=== PATIENT | female | born 1960 | race Caucasian/White ===

== ENCOUNTER → 2018-09-08 07:01 | Outpatient (CLI) | payer OTHER, SELFPAY ==
--- NOTE | 2018-09-08 07:05 | BI_ITS ---
MAMMOGRAPHY - BILATERAL SCREENING REASON FOR EXAM: Female, 58 years old. Routine annual screening examination. PERTINENT HISTORY: Non-contributory. TECHNIQUE: Digital bilateral breast krys (3D mammographic acquisition) in the CC and MLO projections. 2-D mediolateral oblique (MLO) and craniocaudad (CC) views of both breasts were obtained. CAD: Full Field Digital Mammography with Computer Added Detection was performed. COMPARISON: Comparison is made with prior study dated October 08, 2016 and September 12, 2015. FINDINGS: Breast Composition: The breasts are heterogeneously dense, which may obscure small masses. There are no dominant masses or suspicious calcifications. No other significant abnormalities are identified. There has been no significant change since the prior study. BI/SCREENING MAMM (CAD), BILAT IMPRESSION: Stable bilateral screening mammogram. Yearly follow-up mammogram recommended. (A) ASSESSMENT CATEGORY: BIRADS Category 1: Negative. A letter regarding these results will be sent to the patient by the facility within 30 days. Approximately 10% of breast cancers are not detected by mammography. A normal mammogram should not delay biopsy of a clinically suspicious abnormality. [id number] Electronically Signed: Yohan Chaney MD at 8:10 EST Tel [phone], Service support ,
== END ==
PROVIDERS: Family Provider Family Medicine; PCP Family Medicine
DX: Z12.31 Encounter for screening mammogram for malignant neoplasm of breast (principal)
CPT/HCPCS: 77063; 77067

== ENCOUNTER → 2020-08-23 17:30 | Outpatient (CLI) | payer OTHER, SELFPAY ==
--- NOTE | 2020-08-23 17:15 | BI_ITS ---
MAMMOGRAPHY - BILATERAL SCREENING REASON FOR EXAM: Female, 60 years old. Routine annual screening examination. PERTINENT HISTORY: Non-contributory. TECHNIQUE: Digital bilateral breast nestor (3D mammographic acquisition) in the CC and MLO projections. 2-D mediolateral oblique (MLO) and craniocaudad (CC) views of both breasts were obtained. CAD: Full Field Digital Mammography with Computer Added Detection was performed. COMPARISON: Comparison is made with prior study dated 09/08/2018 and 10/08/2016. FINDINGS: Breast Composition: The breasts are heterogeneously dense, which may obscure small masses. Asymmetrical density is seen in the inferior slightly medial retroareolar region of the left breast. Correlation with ultrasound is recommended. No other significant abnormalities are identified. BI/SCREEN MAMM (CAD) W/NESTOR BILAT IMPRESSION: Asymmetrical density in the inferior slightly medial retroareolar region of the left breast as described. Correlation with ultrasound is recommended. ASSESSMENT CATEGORY: BIRADS Category 0: Incomplete. Need additional imaging evaluation. A letter regarding these results will be sent to the patient by the facility within 30 days. Approximately 10% of breast cancers are not detected by mammography. A normal mammogram should not delay biopsy of a clinically suspicious abnormality. [id number] Electronically Signed: Yohan Chaney, at 9:29 EDT , Service support ,
== END ==
PROVIDERS: PCP Family Medicine
DX: Z12.31 Encounter for screening mammogram for malignant neoplasm of breast (principal)
CPT/HCPCS: 77063; 77067

== ENCOUNTER → 2020-08-29 15:02 | Outpatient (CLI) | payer OTHER, SELFPAY ==
--- NOTE | 2020-08-29 15:06 | US_ITS ---
STUDY: ULTRASOUND BREAST - LEFT REASON FOR EXAM: Female, 60 years old. Abnormal screening mammogram. TECHNIQUE: Axial and longitudinal images of the LEFT breast were performed with a high resolution ultrasound transducer. # OF IMAGES: 18 COMPARISON: Comparison is made with prior mammogram dated 08/23/2020. FINDINGS: LEFT Breast: There is evidence of dilated subareolar ducts. No other abnormality is seen. US/Breast Limited Unilateral IMPRESSION: Dilated subareolar ducts. ASSESSMENT CATEGORY: BIRADS Category 2: Benign. A letter regarding these results will be sent to the patient by the facility within 30 days. Electronically Signed: Yohan Chaney, at 15:53 EST , Service support ,
== END ==
LOC: OPUS 15:03
PROVIDERS: PCP Family Medicine
DX: R92.8 Other abnormal and inconclusive findings on diagnostic imaging of breast (principal)
CPT/HCPCS: 76642

== ENCOUNTER → 2021-09-13 14:10 | Outpatient (CLI) | payer OTHER, SELFPAY ==
--- NOTE | 2021-09-13 14:17 | BI_ITS ---
MAMMOGRAPHY - BILATERAL SCREENING REASON FOR EXAM: Female, 61 years old. Routine annual screening examination. PERTINENT HISTORY: Non-contributory. TECHNIQUE: Digital bilateral breast nestor (3D mammographic acquisition) in the CC and MLO projections. 2-D mediolateral oblique (MLO) and craniocaudad (CC) views of both breasts were obtained. CAD: Full Field Digital Mammography with Computer Added Detection was performed. COMPARISON: Comparison is made with prior examination of 08/23/2020 and 09/08/2018. FINDINGS: Breast Composition: The breasts are heterogeneously dense, which may obscure small masses. There are no dominant masses or suspicious calcifications. Stable asymmetry in the inferior slightly medial retroareolar region of the left breast. Prior ultrasound demonstrated this to be glandular tissue. No other significant abnormalities are identified. There has been no significant change since the prior study. BI/SCRN MAMM (CAD)W/NESTOR BILAT IMPRESSION: Stable bilateral screening mammogram. Yearly follow-up mammogram recommended. (A) ASSESSMENT CATEGORY: BIRADS Category 2: Benign. A letter regarding these results will be sent to the patient by the facility within 30 days. Approximately 10% of breast cancers are not detected by mammography. A normal mammogram should not delay biopsy of a clinically suspicious abnormality. [id number] Electronically Signed: Yohan Chaney MD at 15:11 EST , Service support ,
== END ==
PROVIDERS: PCP Family Medicine
DX: Z12.31 Encounter for screening mammogram for malignant neoplasm of breast (principal)
CPT/HCPCS: 77063; 77067

== ENCOUNTER → 2022-09-19 | Outpatient (CLI) | payer OTHER, SELFPAY ==
--- NOTE | 2022-09-19 13:42 | BI_ITS ---
MAMMOGRAPHY - BILATERAL SCREENING REASON FOR EXAM: Female, 62 years old. Routine annual screening examination. PERTINENT HISTORY: Non-contributory. TECHNIQUE: Digital bilateral breast nestor (3D mammographic acquisition) in the CC and MLO projections. 2-D mediolateral oblique (MLO) and craniocaudad (CC) views of both breasts were obtained. CAD: Full Field Digital Mammography with Computer Added Detection was performed. COMPARISON: Screening mammogram from 09/13/2021, 08/29/2020. Diagnostic left breast ultrasound from 08/29/2020. FINDINGS: Breast Composition: The breasts are heterogeneously dense, which may obscure small masses. There are no dominant masses or suspicious calcifications. Stable area of asymmetrical breast tissue in the left retroareolar breast previously characterized be benign glanular tissue on ultrasound. No other significant abnormalities are identified. There has been no significant change since the prior study. BI/SCRN MAMM (CAD)W/NESTOR BILAT IMPRESSION: Stable bilateral screening mammogram. Yearly follow-up mammogram recommended. (A) ASSESSMENT CATEGORY: BIRADS Category 2: Benign. A letter regarding these results will be sent to the patient by the facility within 30 days. Approximately 10% of breast cancers are not detected by mammography. A normal mammogram should not delay biopsy of a clinically suspicious abnormality. Electronically Signed: Otoniel Wylie, at 9:17 EST ,
== END | disposition home or self-care (01) ==
PROVIDERS: PCP Family Medicine; Referring Provider Family Medicine
DX: Z12.31 Encounter for screening mammogram for malignant neoplasm of breast (principal)
CPT/HCPCS: 77063; 77067

== ENCOUNTER → 2023-10-25 | Outpatient (CLI) | payer OTHER, SELFPAY ==
--- NOTE | 2023-10-25 08:09 | BI_ITS ---
MAMMOGRAPHY - BILATERAL SCREENING 3-D TOMOSYNTHESIS REASON FOR EXAM: Female, 63 years old. Routine annual screening mammogram. PERTINENT HISTORY: No significant family history. TECHNIQUE: 2-D mammograms and 3-D Tomosynthesis of the breast (s) were performed. CAD was performed. COMPARISON: September 19, 2022, September 13, 2021 FINDINGS: The breast composition is heterogeneously dense which may obscure small breast masses. Stable scattered benign calcifications and normal axillary lymph nodes. No dominant masses, suspicious microcalcifications, asymmetries, skin thickening or nipple retraction . BI/SCRN MAMM (CAD)W/NESTOR BILAT IMPRESSION: No interval change and no mammographic signs of malignancy. Routine yearly mammogram recommended. ASSESSMENT CATEGORY: BIRADS Category 2: Benign. A letter regarding these results will be sent to the patient by the facility within 30 days. FOLLOW UP RECOMMENDATION: Yearly follow up mammogram recommended. (A) Approximately 10% of breast cancers are not detected by mammography. A normal mammogram should not delay biopsy of a clinically suspicious abnormality. Electronically Signed: Facundo Paniagua MD at 12:34 EST ,
--- OUTSIDE RECORDS SUMMARY | 2023-10-25 08:47 | XMS RPT_ITS | CCD ---
Author Name Unknown Address [address] [place] [address] Organization [facility] Care Team Providers Care Statistician Applied Name Role Phone Justo Camacho Unavailable Unavailable Justo Camacho Unavailable Unavailable Justo Camacho Primary Care Provider JUSTO CAMACHO Primary Care Justo [place] MD Primary Care [facility] er Justo Camacho Unavailable Unavailable Unavailable Justo Camacho MD Primary Care [facility] er Justo Camacho Referring Justo [place] Attending Justo Madrid Primary Care Cielo Carrasquillo CNP Unavailable JUSTO CAMACHO Primary Care CIELO Carrasquillo Attending Unavailable Allergies Allergy Classification Reported Allergen(s) Allergy Type Date of Onset Reaction(s) Facility (3 sources) amoxicillin / clavulanate; Translations: [Augmentin] Drug Allergy [facility] Repository (1 source) azithromycin; Translations: [Zithromax Z-Trino] [facility] Bee/Wasp/Ant venom; Translations: [Bee Stings] Propensity to adverse reactions to drug (disorder) [facility] ([facility]) cefuroxime; Translations: [Ceftin] [facility] (17 sources) fentaNYL; Translations: [fentaNYL] Drug Allergy 5 Unknown [facility] Repository (1 source) moxifloxacin; Translations: [Avelox] Drug Allergy [facility] Repository (1 source) Food intolerance; Translations: [Food intolerance] Propensity to adverse reactions to food (disorder) [facility] Repository (14 sources) Amoxicillin / Clavulanate; Translations: [AMOXICILLIN-POT CLAVULANATE] Drug Allergy 9 [facility] (16 sources) Azithromycin; Translations: [AZITHROMYCIN] Drug Allergy 7 [facility] (14 sources) Cefuroxime; Translations: [CEFUROXIME AXETIL] Drug Allergy [facility] (14 sources) Lactose; Translations: [LACTOSE] Drug Allergy [facility] (16 sources) levoFLOXacin; Translations: [LEVOFLOXACIN] Drug Allergy 9 [facility] (16 sources) moxifloxacin; Translations: [MOXIFLOXACIN] Drug Allergy 7 [facility] (14 sources) wasp venom; Translations: [WASP VENOM] Propensity to adverse reactions to drug 0 [facility] (2 sources) Cefuroxime; Translations: [cefuroxime] Drug Allergy [facility] Work Phone: Medications Current Medications Medication Drug Class(es) Dates Sig (Normalized) Sig (Original) compounded hormone cream (18 sources) Start: 09-24-2023 compounded hormone cream Indications: testosterone 2%, apply 1/2 tsp every other day Testosterone 2%, apply 0.5 mL every other day, Reasons: testosterone 2%, apply 1/2 tsp every other day. 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] Episodic Other female genital disorders (3 sources) Atrophic vulva; Translations: [Atrophy of vulva] Episodic Other screening for suspected conditions (not mental disorders or infectious disease) (6 sources) Patient encounter status; Translations: [Encounter for screening mammogram for malignant neoplasm of breast] Episodic Residual codes; unclassified (9 sources) Postmenopausal state; Translations: [Hormone replacement therapy] Episodic Residual codes; unclassified (1 source) H/O: hysterectomy; Translations: [H/O: hysterectomy] Episodic Residual codes; unclassified (1 source) Memory impairment; Translations: [Memory change] Episodic Residual codes; unclassified (1 source) At risk of osteoporosis; Translations: [At high risk for osteoporosis] Episodic Residual codes; unclassified (2 sources) Reduced libido; Translations: [Decreased libido] Onset: 09-24-2023 09-24-2023 Episodic Residual codes; unclassified (1 source) Decreased libido; Translations: [Decreased libido] Onset: 09-24-2023 Episodic Unclassified (3 sources) Patient encounter status; Translations: [Encounter for gynecological examination without abnormal finding] Past or Other Problems Problem Classification Problem Date Documented Da te Episodic/Chronic Residual codes; unclassified (2 sources) Past history of procedure; Translations: [Other specified personal history presenting hazards to health] Onset: 09-13-2021 Episodic Results Test Name Value Interpretation Reference Range Facil it Vital Signs Date Time Vital Sign Value Performing Clinician Faci lity 09-24-2023 11:06-0500 Body height 155.6 cm Cielo FROST P Work Phone: [facility] 09-24-2023 11:06-0500 Body mass index (BMI) [Ratio] 34.86 kg/m2 Cielo Gurrola [employer] DEPUTY DIRECTOR Work Phone: [facility] 09-24-2023 11:06-0500 Body weight 84.37 kg Cielo FROST P Work Phone: [facility] 09-24-2023 11:06-0500 Diastolic blood pressure 84 mm[Hg] Cielo Gurrola [employer] DEPUTY DIRECTOR Work Phone: [facility] Encounters Encounter Date Encounter Type Care Provider Facility Start: 09-24-2023 End: 09-24-2023 Lavinia Gonzalez RN [facility] Gynecology Procedures Date Procedure Procedure Detail Performing Clinician Start: 09-19-2022 Mammography Cielo Gurrola CNP Work Phone: Start: 09-13-2021 Mammography Peggy henson JAYLIN Work Phone: Start: 08-23-2020 Mammography Joan olvera MA Cataract surgery Justo Taylor abbiechar Work Phone: Plan of Treatment Date Care Activity Detail Author Start: 09-30-2024 End: 09-30-2024 Patient encounter procedure 09/30/2024 11:50 AM EST Office Visit [facility] Physician [facility] Gynecology [address] [place] [address] Cielo Gurrola, JAYLIN [address] [place] [address] [facility] Physician [facility] Gynecology Start: 09-24-2024 History and physical examination, annual for health maintenance Wellness Visit [facility] Start: 09-20-2023 End: 09-20-2023 Patient encounter procedure 09/20/2023 Office Visit Gynecology Peggy Daniels CNP [address] [place] [address] [facility] Physician [facility] Gynecology Start: 09-19-2023 Screening for malignant neoplasm of breast Mammogram [facility] Start: 09-14-2023 History and physical examination, annual for health maintenance Wellness Visit [facility] Start: 06-28-2023 COVID-19 Vaccine () COVID-19 Vaccine () [facility] Start: 06-28-2023 Influenza vaccination Sequential Influenza Vaccine (#1) [facility] Start: 09-14-2022 End: 09-14-2022 Patient encounter procedure 09/14/2022 Office Visit Gynecology Peggy Daniles CNP [address] [place] [address] [facility] Physician [facility] Gynecology Start: 09-13-2022 Screening for malignant neoplasm of breast Mammogram [facility] Start: 09-11-2022 History and physical examination, annual for health maintenance Wellness Visit [facility] Start: 06-28-2022 Influenza vaccination Sequential Influenza Vaccine (#1) [facility] Start: 02-04-2022 COVID-19 Vaccine (3 - Booster for Moderna series) COVID-19 Vaccine (3 - Booster for Moderna series) [facility] Start: 10-01-2021 COVID-19 Vaccine (3 - Booster for Moderna series) COVID-19 Vaccine (3 - Booster for Moderna series) [facility] Start: 09-11-2021 End: 09-11-2021 Patient encounter procedure 09/11/2021 Office Visit Gynecology Peggy Daniels CNP [address] [place] [address] [facility] Gy[facility] Start: 08-23-2021 Screening for malignant neoplasm of breast Mammogram [facility] Start: 08-08-2021 History and physical examination, annual for health maintenance Wellness Visit [facility] Start: 06-28-2021 Influenza vaccination Sequential Influenza Vaccine (#1) [facility] Start: 10-03-2020 End: 10-03-2020 Telemedicine 10/03/2020 Telemedicine Gynecology Alexandra Green MD [address] [place] [address] [phone] [facility] Start: 08-04-2020 History and physical examination, annual for health maintenance Wellness Visit [facility] Start: 06-28-2020 Influenza vaccination given Sequential Influenza Vaccine (#1) [facility] Start: 01-14-2012 Administration of herpes zoster vaccine Zoster Vaccines (1 of 2) [facility] Start: 01-14-2012 Screening for malignant neoplasm of colon [facility] Start: 01-14-1980 Hepatitis C antibody, confirmatory test Hepatitis C Screening [facility] Start: 01-14-1980 Hepatitis C screening Hepatitis C Screening [facility] Start: 1978 COVID-19 Vaccine (1 of 2) COVID-19 Vaccine (1 of 2) [facility] Start: 1977 HIV screening HIV Screening [facility] Start: 1974 Adolescent depression screening assessment Depression Screening (PHQ9) [facility] Start: 1974 COVID-19 Vaccine (1) COVID-19 Vaccine (1) [facility] Start: 1974 Depression screening using PHQ-9 (Patient Health Questionnaire 9) score [facility] Start: 1960 Screening for malignant neoplasm of cervix Pap Smear [facility] Start: 1962 Screening for malignant neoplasm of colon [facility] Start: 1962 Screening mammography Mammogram [facility] Start: 1962 Tetanus vaccination Tetanus: Every 10yrs [facility] End: 11-11-2022 MG Breast - bilateral Screening Mammography Screening Bilateral Imaging Routine Visit for screening mammogram 1 Occurrences starting 09/11/2021 until 11/11/2022 [facility] Work Phone: Immunizations Immunization Date Immunization Notes Care Provider Karina alford 08-06-2021 Moderna COVID-19 Vaccine 100 MCG/0.5ML Intramuscular Suspension Justo Camacho Work Phone: [facility] Work Phone: Payers Date Payer Category Payer Unknown [id number] 2019 Unknown [id number] 2019 Unknown [id number] 2018 Private Health Insurance 1960 Unknown [id number] 1960 Unknown [id number] 1960 Unknown [id number] Social History Date Type Detail Facility Start: 08-08-2020 End: 09-24-2023 Tobacco smoking status NHIS Never smoker [facility] Start: 08-08-2020 End: 09-24-2023 Tobacco use and exposure Never used [facility] Start: 08-08-2020 End: 09-24-2023 Alcohol intake Ex-drinker (finding) [facility] Start: 1960 Sex Assigned At Not on file [facility] Start: 09-04-2022 End: 09-14-2022 Exposure to SARS-CoV-2 (event) Not sure [facility] Start: 09-11-2021 History SDOH Alcohol Comment Rarely; once a year. [facility] Start: 09-24-2023 Non-smoker Non-smoker [facility] Work Phone: Start: 09-24-2023 Tobacco use panel [facility] Start: 10-03-2020 Gender identity Identifies as female gender (finding) [facility] Start: 10-03-2020 Sexual orientation Heterosexual (finding) [facility] Clinical Notes 03-02-2012 to 09-24-2023 Telephone Encounter - Dallas Gonzalez RN - 09/24/2023 1:07 PM ESTTelephone Encounter - Dallas Gonzalez RN - 09/24/2023 1:07 PM Cielo Aragon CNP - 09/24/2023 11:27 AM EST Note Date & Type Note Facility 09-24-2023 Telephone encounter Note Called and spoke to pharmacist at [facility]. Verbal order with read back given for patient's testosterone cream. Office call back number provided for any further questions. Medication order placed and routed to provider for review/sign off. [facility] 09-24-2023 Miscellaneous Notes Called and spoke to pharmacist at [facility]. Verbal order with read back given for patient's testosterone cream. Office call back number provided for any further questions. Medication order placed and routed to provider for review/sign off. ----- Message from Cielo Gurrola CNP sent at 09/24/2023 11:30 AM EST ----- Please call refill of testosterone to pharmacy documented in this encounter [facility] 09-24-2023 Telephone encounter Note ----- Message from Cielo Gurrola CNP sent at 09/24/2023 11:30 AM EST ----- Please call refill of testosterone to pharmacy [facility] 09-24-2023 History of Presen t illness Narrative Annual Gynecologic Examination Subjective: Seema León is a 63 y.o. 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 [employer]S LABORATORY DIRECTOR with/without complaints. Feels well on HRT, having some brain fog. Recommend followup with PCP. No hot flashes. Has been using testosterone daily. Will check level for safety. The patient denies no breast pain or new or enlarging lumps on self exam, no side effects of hormonal medications, no discharge or pelvic pain, no hot flashes. ENERGY SYSTEMS LABORATORY DIRECTOR------- 63 y.o. Annual 09/14/22 SS, 09/24/23 Pap no history abnormal pap Contraception hysterectomy RSO Mammogram 09/19/22 due Colonoscopy 2020 Dexa age 67 Pertinent family history no cancer Divigel 0.075 EVC Testosterone 2%, apply 0.5 mg every day, Reasons: testosterone 2%, apply 1/2 tsp every day. Objective: vitals taken for this visit.see flow sheet General: awake, alert, no acute distress Neck: no thyromegaly Breast: no skin changes, no palpable masses, no nipple discharge bilaterally Heart: normal rate and regular rhythm Lungs: Normal Symmetric, clear breath sounds bilaterally Abdomen: soft, non-tender, non-distended. Pelvic Exam: Ext Genitalia/Perineum: Normal female without lesions. Urethra/Urethral meatus/bladder: Normal, well supported. Vagina: Normal vaginal vault without lesions. Pelvic support is adequate. Cervix: surgically absent Uterus: surgically absent Adnexa: No masses. Non-tender bilaterally. RSO Rectal exam: deferred. Impression: Problem List Items Addressed This Visit None Visit Diagnoses Encounter for gynecological examination without abnormal finding - Primary Decreased libido Relevant Orders Testosterone, Total Hormone replacement therapy (postmenopausal) Relevant Medications estradioL (DivigeL) 0.75 mg/0.75 gram (0.1%) GlPk estradioL (ESTRACE) 0.01 % (0.1 mg/gram) vaginal cream Plan mammogram return annually or prn * Self Breast Awareness encouraged. * Safe sexual practices reviewed. * She was counseled regarding healthy diet and exercise. * Colonoscopy: up to date * Recommended multivitamin, calcium and vitamin D supplementation. * AVS/Instructions given. Return in 1 year unless otherwise indicated. documented in this encounter [facility] 10-12-2022 Telephone encounter Note TJ at [facility] left message on Refill line requesting refill of pt's compounded testosterone versabase 2% cream, apply 0.5ml QOD. Pt was last seen in office on 09/24/22 by Di Daniels CNP for annual exam. [facility] 10-12-2022 Miscellaneous Notes TJ at [facility] left message on Refill line requesting refill of pt's compounded testosterone versabase 2% cream, apply 0.5ml QOD. Pt was last seen in office on 09/24/22 by Di Daniels CNP for annual exam. Request routed to [facility] for approval. documented in this encounter [facility] 09-17-2022 History of Presen t illness Narrative Received call from [facility] imaging facility requesting new order for screening mammogram. States they only offer 3D/Urnuly mammograms and order needs to reflect this. New order entered, printed and faxed to [phone]. Phone number to call [facility] if any questions: [phone] documented in this encounter [facility] 03-28-2022 History of Presen t illness Narrative [facility] [address] [place] [facility] [address] Name: Seema León : 1960 Date: 09/14/2022 Seema León is a 62 y.o. female presenting for annual exam I have personally reviewed the past medical, surgical, social, and family history for Ms. Seema León. I have also reviewed the home medications, allergies, and the problem list for this patient. Review of Systems Constitutional: Negative for activity change, appetite change, fatigue and unexpected weight change. Respiratory: Negative for chest tightness and shortness of breath. Cardiovascular: Negative for chest pain, palpitations and leg swelling. Gastrointestinal: Negative for abdominal distention, abdominal pain, constipation, diarrhea, nausea and vomiting. Endocrine: Negative for cold intolerance and heat intolerance. Genitourinary: Negative for decreased urine volume, difficulty urinating, dyspareunia, dysuria, enuresis, flank pain, frequency, genital sores, hematuria, menstrual problem, pelvic pain, urgency, vaginal bleeding, vaginal discharge and vaginal pain. Skin: Negative for color change and rash. Neurological: Negative for facial asymmetry, speech difficulty and headaches. Hematological: Negative for adenopathy. Does not bruise/bleed easily. Psychiatric/Behavioral: Negative for agitation, behavioral problems, confusion, decreased concentration, self-injury, sleep disturbance and suicidal ideas. The patient is not nervous/anxious. LMP 04/27/2000 (Approximate) Comment: total hyst Physical Exam Vitals and nursing note reviewed. Constitutional: Appearance: Normal appearance. She is well-developed. HENT: Head: Normocephalic. Neck: Thyroid: No thyroid mass or thyromegaly. Cardiovascular: Rate and Rhythm: Normal rate and regular rhythm. Heart sounds: Normal heart sounds. Pulmonary: Effort: Pulmonary effort is normal. No respiratory distress. Breath sounds: Normal breath sounds. No wheezing or rales. Chest: Breasts: Breasts are symmetrical. Right: No inverted nipple, mass, nipple discharge, skin change or tenderness. Left: No inverted nipple, mass, nipple discharge, skin change or tenderness. Abdominal: Palpations: Abdomen is soft. There is no mass. Tenderness: There is no abdominal tenderness. Hernia: There is no hernia in the left inguinal area. Genitourinary: General: Normal vulva. Labia: Right: No rash, tenderness, lesion or injury. Left: No rash, tenderness, lesion or injury. Vagina: Normal. No vaginal discharge, tenderness or bleeding. Adnexa: Right: No mass, tenderness or fullness. Left: No mass, tenderness or fullness. Comments: Uterus and cervix surgically removed. Musculoskeletal: General: Normal range of motion. Cervical back: Normal range of motion. Lymphadenopathy: Cervical: No cervical adenopathy. Skin: General: Skin is warm and dry. Neurological: Mental Status: She is alert and oriented to person, place, and time. Psychiatric: Speech: Speech normal. Behavior: Behavior normal. Thought Content: Thought content normal. Judgment: Judgment normal. 1. Encounter for gynecological examination without abnormal finding 2. Screening for malignant neoplasm of cervix Seema Bunny León presents for annual exam. Reviewed medical surgical and family history. Medications updated. Advised on timing and technique of self breast exam, and yearly Mammogram recommendations. Reviewed current PAP/HPV guidelines with infection screening as if indicated. Encouraged physical activity and healthy diet. Advised to take Calcium, Vitamin D and MVI. Perimenopausal/menopausal symptoms reviewed and patient advised to call office as needed. Sexuality dysfunction addressed as indicated. Colon cancer screening: current Follow up in one year and PRN. Peggy Daniels CNP 09/14/22 documented in this encounter [facility] 06-22-2021 Miscellaneous Notes Called rx to pharmacistFrancisco, at [facility]. Patient LVM on nurse line requesting refill of testosterone to [facility]. Patient is scheduled for annual in August. Reports fax # is [phone]. Refill sent to provider to sign. documented in this encounter [facility] 06-21-2021 Miscellaneous Notes Received refill fax request for Divigel. Pt has an annual scheduled on 09/11/2021 documented in this encounter [facility] 03-28-2021 History of Presen t illness Narrative [facility] [address] [place] [facility] [address] Name: Seema León : 1960 Date: 09/11/21 Seema León is a 61 y.o. female presenting for No chief complaint on file. I have personally reviewed the past medical, surgical, social, and family history for . Seema León. I have also reviewed the home medications, allergies, and the problem list for this patient. Review of Systems Constitutional: Negative for activity change, appetite change, fatigue and unexpected weight change. Respiratory: Negative for chest tightness and shortness of breath. Cardiovascular: Negative for chest pain, palpitations and leg swelling. Gastrointestinal: Negative for abdominal distention, abdominal pain, constipation, diarrhea, nausea and vomiting. Endocrine: Negative for cold intolerance and heat intolerance. Genitourinary: Negative for decreased urine volume, difficulty urinating, dyspareunia, dysuria, enuresis, flank pain, frequency, genital sores, hematuria, menstrual problem, pelvic pain, urgency, vaginal bleeding, vaginal discharge and vaginal pain. Skin: Negative for color change and rash. Neurological: Negative for facial asymmetry, speech difficulty and headaches. Hematological: Negative for adenopathy. Does not bruise/bleed easily. Psychiatric/Behavioral: Negative for agitation, behavioral problems, confusion, decreased concentration, self-injury, sleep disturbance and suicidal ideas. The patient is not nervous/anxious. LMP (LMP Unknown) Comment: total hyst Physical Exam Vitals and nursing note reviewed. Constitutional: Appearance: Normal appearance. She is well-developed and well-nourished. HENT: Head: Normocephalic. Neck: Thyroid: No thyroid mass or thyromegaly. Cardiovascular: Rate and Rhythm: Normal rate and regular rhythm. Heart sounds: Normal heart sounds. Pulmonary: Effort: Pulmonary effort is normal. No respiratory distress. Breath sounds: Normal breath sounds. No wheezing or rales. Chest: Breasts: No discharge from either breast. No bleeding. Breasts are symmetrical. Right: No inverted nipple, mass, nipple discharge, skin change or tenderness. Left: No inverted nipple, mass, nipple discharge, skin change or tenderness. Abdominal: Palpations: Abdomen is soft. There is no mass. Tenderness: There is no abdominal tenderness. Hernia: There is no hernia in the right inguinal area or left inguinal area. Genitourinary: Labia: Right: No rash, tenderness, lesion or injury. Left: No rash, tenderness, lesion or injury. Vagina: Normal. No vaginal discharge, tenderness or bleeding. Adnexa: Right: No mass, tenderness or fullness. Left: No mass, tenderness or fullness. Comments: Uterus and cervix surgically removed. Musculoskeletal: General: Normal range of motion. Cervical back: Normal range of motion. Lymphadenopathy: Cervical: No cervical adenopathy. Upper Body: No axillary adenopathy present. Lower Body: No right inguinal adenopathy. No left inguinal adenopathy. Skin: General: Skin is warm, dry and intact. Neurological: Mental Status: She is alert and oriented to person, place, and time. Psychiatric: Mood and Affect: Mood and affect normal. Speech: Speech normal. Behavior: Behavior normal. Thought Content: Thought content normal. Cognition and Memory: Cognition and memory normal. Judgment: Judgment normal. 1. Encounter for gynecological examination without abnormal finding Seema León presents for annual exam. Reviewed medical surgical and family history. Medications updated. Menses: s/p hysterectomy. Advised on timing and technique of self breast exam, and yearly Mammogram recommendations. Encouraged physical activity and healthy diet. Advised to take Calcium, Vitamin D and MVI. Perimenopausal/menopausal symptoms reviewed and patient advised to call office as needed. Sexuality dysfunction addressed as indicated. Forced to take Moderna vaccine. C/O fatigue and chest pain (resolved) Recommended Colonoscopy screening every 10 years, and Hepatitis C screening once if indicated. Follow up in one year and PRN. Peggy Daniels CNP 09/11/21 documented in this encounter [facility] 03-02-2012 History of Presen t illness Narrative MMG 2020 at [facility] 2015 - 10 yearsOverall things are going well. They are having troubles with bees at work, and they are trying to get rid of them but she wants a refill on her EpiPen.View of systems is generally negative, but we will check some basic blood tests including lipids. [facility] Work Phone: documented in this encounter [facility] Encounter for gynecological examination without abnormal finding- Primary Visit for screening mammogram Hormone replacement therapy (postmenopausal) [facility] Diagnosis Encounter for gynecological examination without abnormal finding- Primary Screening for malignant neoplasm of cervix Screening for malignant neoplasm of the cervix Encounter for screening mammogram for malignant neoplasm of breast Hormone replacement therapy (postmenopausal) Vulvar atrophy [facility] Diagnosis Encounter for screening mammogram for malignant neoplasm of breast- Primary [facility] Diagnosis Hormone replacement therapy (postmenopausal) Vulvar atrophy [facility] Diagnosis Encounter for gynecological examination without abnormal finding- Primary Decreased libido Hormone replacement therapy (postmenopausal) [facility] Diagnosis Hormone replacement therapy (postmenopausal) Vulvar atrophy documented in this encounter [facility] Summary Purpose Family History No Family History Records FoundNo Family History Records FoundNo Family History Records FoundNo Family History Records FoundNo Family History Records Found Advance Directives No Advanced Directives Records FoundDocuments on File Type Date Recorded Patient Surgical Orderly Expl anation Advance Directives and Living Will Documents on File Type Date Recorded Patient Surgical Orderly Expl anation Advance Directives and Living Will History of Present Illness * Yoly Rowland CNP - 08/08/2020 2:44 PM EDT [facility] [address] [facility] [id number] SUBJECTIVE Name: Seema León : 1960 Date: 08/08/20 Seema León is a 60 y.o. female presenting for Annual Exam. Chief Complaint Patient presents with Annual Exam Pt here for annual visit. Pt has H/O hysterectomy. Pt last kristen 09/08/18, wnl. Pt prepped for exam. Hx of hysterectomy in 1999 w/ removal of left ovary and right ovary removed in 2000. Pt is currently taking compounded testosterone cream, divigel, and vaginal estrace. She thinks her testosterone isgetting too low again . She is having memory issues and emotional changes. Reports when she was first seen she forgot her and how to get here and found her testosterone was low. She is requested testosterone be checked. Last mammogram is listed as 09/08/2018 and was normal. Pt has mammo scheduled later this month @ [facility], plans to have records sent to [facility]. UTD with colonoscopy (2014). Never had a bone density. She is taking Ca/Vit D supplements. She does walk with ankle weights as well as bicycle. The patient is otherwise well and without fevers,chills, CP, SOB, chest papitations, severe abdominal or pelvic pain, nausea, vomiting, bladder or bowel issues. Review of Systems Constitutional: Negative. HENT: Negative. Eyes: Negative. Respiratory: Negative. Cardiovascular: Negative. Gastrointestinal: Negative. Endocrine: Negative. Genitourinary: Negative. Musculoskeletal: Negative. Skin: Negative. Allergic/Immunologic: Negative. Neurological: Negative. Hematological: Negative. Psychiatric/Behavioral: Negative. Negative for agitation, behavioral problems, confusion, decreasedconcentration, dysphoric mood, hallucinations, self-injury, sleep disturbance and suicidal ideas. The patient is not nervous/anxious and is not hyperactive. C/o mood changes and memory loss All other systems reviewed and are negative. ASSESSMENT BP 120/78 Temp 98 F (36.7 C) Ht 5' 1 Wt 80.7 kg (178 lb) LMP (LMP Unknown) Comment: total hyst BMI 33.63 kg/m Physical Exam Constitutional: She is oriented to person, place, and time. She appears well- developed and well-nourished. HENT: Head: Normocephalic. Nose: Nose normal. Pulmonary/Chest: Effort normal. Right breast exhibits no inverted nipple, no mass, no nipple discharge, no skin change and no tenderness. Left breast exhibits no inverted nipple, no mass, no nipple discharge, no skin change and no tenderness. No breast swelling, tenderness, discharge or bleeding. Breasts are symmetrical. Breasts symmetric, nontender, without lumps or masses. Nipples everted, without nipple discharge, lesions, or skin abnormalities. Genitourinary: Vagina and rectum normal. No labial fusion. There is no rash, tenderness, lesion or injury on the right labia. There is no rash, tenderness, lesion or injury on the left labia. Genitourinary Comments: Vulva without lesions, sores, or discoloration. Vaginal introitus thin and narrow. No abnormal discharge, bleeding, or odor.Uterus, cervix and ovaries are surgically removed. Neurological: She is alert and oriented to person, place, and time. Skin: Skin is warm and dry. Psychiatric: She has a normal mood and affect. Her behavior is normal. Judgment and thought contentnormal. Nursing note and vitals reviewed. I have personally reviewed the past medical, surgical, social, and family history for Ms. Seema Schneider. I have also reviewed the home medications, allergies, and the problem list for this patient. PLAN Discussed risks and benefits of HT, current guidelines, intermediate accountant usage, WHI and recent findings. Side effect profile of E2 and Progestins, available FDA approved meds, routes of delivery and alternatives to HT were discussed. Will increase Divigel to 0.75 d/t c/o of emotional changes and memory loss. Will check testosterone levels per pt request and depending on results may increase testosteronedosage. Will phone in rx once labs are resulted. Reviewed pap guidelines, STI prevention, and safe sex practice. Discussed diet, exercise, and importance of Ca/Vit D intake. Discussed breast self awareness and mammography, colonoscopy and DEXA guidelines as appropriate. 1. Encounter for gynecological examination without abnormal finding 2. Postmenopausal Testosterone, Total and Free (Calculated) 3. H/O: hysterectomy 4. Medication management Testosterone, Total and Free (Calculated) 5. Hormone replacement therapy (postmenopausal) Testosterone, Total and Free (Calculated) estradioL (ESTRACE) 0.01 % (0.1 mg/gram) vaginal cream 6. Memory change Testosterone, Total and Free (Calculated) 7. Mood swings Orders Placed This Encounter Testosterone, Total and Free (Calculated) Standing Status: Future Standing Expiration Date: 08/08/2021 estradioL (DivigeL) 0.75 mg/0.75 gram (0.1%) GlPk Sig: Place 1 packet on the skin daily . Dispense: 90 packet Refill: 3 estradioL (ESTRACE) 0.01 % (0.1 mg/gram) vaginal cream Sig: Apply 1/2 gram vaginally twice a week. . Dispense: 85 g Refill: 3 Discussed diet and exercise; timing and technique of SBE; current mammogram screening recommendations; MVI; Ca+/Vit D supplementation; STD screening and prevention; current Pap/HPV guidelines; and current colorectal screening guidelines. Pt also counseled on common menstrual changes, s/sx of perimenopause and when to call. All questions answered and pt agrees with plan of care. Return in about 1 year (around 08/08/2021) for Annual physical. Yoly Rowland APRN [facility] documented in this encounter* Saira Antonio MA - 09/20/2020 8:27 AM EST DEXA performed. Patient instructed to make follow up appt with physician. documented in this encounter Assessments Diagnosis Encounter for gynecological examination without abnormal finding- Primary Postmenopausal Asymptomatic postmenopausal status (age-related) (natural) H/O: hysterectomy Acquired absence of both cervix and uterus Medication management Hormone replacement therapy (postmenopausal) Memory change Memory loss Mood swings Other specified episodic mood disorder Diagnosis Screening for osteoporosis- Primary Special screening for osteoporosis At high risk for osteoporosis Osteopenia of lumbar spine Osteopenia of necks of both femurs Reason for Referral Specialty Diagnoses / Procedures Referred By Rd dubose Referred To Contact Diagnoses Visit for screening mammogram Procedures Mammography Screening Bilateral Peggy Daniels CNP [address] [phone] Referral ID Status Reason Start Date Expiration Date V isits Requested Visits Authorized [id number] Authorized 09/11/2021 09/11/2022 1 1 Specialty Diagnoses / Procedures Referred By Rd dubose Referred To Contact Central Scheduling Diagnoses Encounter for screening mammogram for malignant neoplasm of breast Procedures Mammography Screening Bilateral [facility] Daniels CNP [address] [facility] [place] [phone] Central Scheduling [address] [place] [address] Referral ID Status Reason Start Date Expiration Date V isits Requested Visits Authorized [id number] Authorized 09/14/2022 09/14/2023 1 1 Specialty Diagnoses / Procedures Referred By Contac t Referred To Contact Diagnoses Encounter for screening mammogram for malignant neoplasm of breast Procedures Mammography Screening Unruly Peggy Glynn, [employer] DEPUTY DIRECTOR [address] [place] [address] Referral ID Status Reason Start Date Expiration Date V isits Requested Visits Authorized [id number] Authorized 09/17/2022 09/17/2023 1 1 Chief Complaint WELLNESS Additional Source Comments INFORMATION SOURCE (unrecogn ized section and content) DATE CREATED AUTHOR AUTHOR'S ORGANIZ ATION 08/12/2020 [facility] DATE CREATED AUTHOR AUTHOR'S ORGANIZ ATION 03/03/2022 [facility] DATE CREATED AUTHOR AUTHOR'S ORGANIZ ATION 09/19/2022 [facility] DATE CREATED AUTHOR AUTHOR'S ORGANIZ ATION 09/26/2023 [facility] Reason for Visit (unrecogniz ed section and content) Reason Comments DEXA Reason Onset Date Comments Medication Refill 06/22/2021 Reason Comments Annual Exam Pt s/p hysterectomy 1999. Reason Comments Annual Exam Pt s/p hysterectomy Reason Onset Date Comments Medication Refill 10/12/2022 Reason Comments Annual Exam Patient s/p hysterec deborah 2019. Reason Onset Date Comments Medication Refill 09/24/2023 Care Teams (unrecognized sec tion and content) Statistician Applied Relationship Specialty Start Date End Date Justo Camacho MD [address] [place] [address] PCP - General Family Medicine 07/23/17 Statistician Applied Relationship Specialty Start Date End Date Justo Camacho MD [address] [place] [address] PCP - General Family Medicine 07/23/17 Statistician Applied Relationship Specialty Start Date End Date Justo Camacho MD [address] [place] [address] PCP - [facility] 07/23/17 Statistician Applied Relationship Specialty Start Date End Date Justo Camacho MD [address] [place] [address] PCP - [facility] 07/23/17 Statistician Applied Relationship Specialty Start Date End Date Justo Camacho MD [address] [place] [address] PCP - [facility] 07/23/17 Statistician Applied Relationship Specialty Start Date End Date Justo Camacho MD [address] [place] [id number] PCP - [facility] 07/23/17 Cielo Gurrola CNP [address] [facility] [place] [address] Obstetrics/Gynecology 09/23/23 Statistician Applied Relationship Specialty Start Date End Date Justo Camacho MD [address] [place], [place] [id number] PCP - [facility] 07/23/17 Cielo Gurrola CNP [address] [place] [address] Obstetrics/Gynecology 09/23/23 FOR RECORDS PERTAINING TO PATIENTS WHO ARE OR HAVE BEEN ENROLLED IN A CHEMICAL DEPENDENCY/SUBSTANCEABUSE PROGRAM, SOME INFORMATION MAY BE OMITTED. This clinical summary was aggregated from multiple sources. Caution should be exercised in using it in the provision of clinical care. This summary normalizes information from multiple sources, and as a consequence, information in this document may materially change the coding, format and clinical context of patient data. In addition, data may be omitted in some cases. CLINICAL DECISIONS SHOULD BE BASED ON THE PRIMARY CLINICAL RECORDS. [facility] [employer] [facility]. provides no warranty or guarantee of the accuracy or completeness of information in this document.
== END | disposition home or self-care (01) ==
LOC: OPBI 08:07
PROVIDERS: PCP Family Medicine
DX: Z12.31 Encounter for screening mammogram for malignant neoplasm of breast (principal)
CPT/HCPCS: 77063; 77067

== ENCOUNTER → 2025-05-27 | Outpatient (CLI) | payer OTHER, SELFPAY ==
--- NOTE | 2025-05-27 16:37 | BI_ITS ---
EXAM: SCRN MAMM (CAD)W/NESTOR BILAT DATE: 05/27/2025 CLINICAL HISTORY: F, Age 65 y/o , SCREENING TECHNIQUE: SCRN MAMM (CAD)W/NESTOR BILAT COMPARISON: Prior exam(s) were compared FINDINGS: TISSUE DENSITY: The breasts are heterogeneously dense, which may obscure small masses. Bilateral Breast Mammographic Findings: No suspicious masses, calcifications or other abnormalities are identified. BI/SCRN MAMM (CAD)W/NESTOR BILAT IMPRESSION: No mammographic evidence of malignancy in either breast OVERALL FINAL ASSESSMENT BI-RADS 1: NEGATIVE. RECOMMENDATION: Routine annual follow-up in 1 Year A letter with findings and recommendations will be mailed to the patient. Reading Location: [id number]
== END | disposition home or self-care (01) ==
PROVIDERS: PCP Family Medicine
DX: Z12.31 Encounter for screening mammogram for malignant neoplasm of breast (principal)
CPT/HCPCS: 77063; 77067